=== PATIENT | female | born 1995 | race Caucasian/White ===

== ENCOUNTER → 2017-08-26 | Outpatient (CLI) | payer OTHER ==
[~2017-08-26] MED LIST: COLA100C5 PO; IBUP80TA PO; PERC5TAB12 PO; PERCOCET PO; PRENTAB20 PO; PROHANCE 279.3MG/ML 15ML VIAL (A9576) As Ordered ONE; TUMS500C PO
--- NOTE | 2017-08-26 12:30 | REP ---
MRI left foot without followed by with IV contrast: History: Evaluate for Russell's neuroma left foot. Second and third metatarsal space. Pain. No comparison imaging. Technique: Axial, coronal and sagittal T1 and T2 weighted scans were obtained with and without fat saturation. MRI findings: There is an ill-defined area of T2 hyperintense edema in the distal intermetatarsal web space between the third and fourth metatarsals consistent with a diagnosis of Russell's neuroma. The T2 hyperintense signal spans a 1 cm proximal to distal x 9 mm dorsal to plantar x 10 mm medial to lateral dimension. I do not see a clearly defined soft tissue mass. There is a small quantity of fluid adjacent to the flexor tendon at the head of the third metatarsal. No significant joint effusion is seen. Cortical and medullary bone signal intensity are normal here as well as throughout the remainder of the foot. No other soft tissue finding is seen. Post gadolinium enhanced images do not show any significant enhancement here. No other evidence of abnormal gadolinium enhancement is seen. The exam is otherwise unremarkable. Impression: Focal area of T2 hyperintense edema in the web space between the distal ends of the third and fourth metatarsals. No definable mass lesion is seen, however this may represent a small Russell's neuroma. No other significant finding. Signed by Rolando Ramires MD 08/26/2017 03:13 P
== END ==
LOC: M RAD 09:00
PROVIDERS: ATTEND Podiatrist Foot & Ankle Surgery
DX: G57.62 Lesion of plantar nerve, left lower limb (principal); M79.672 Pain in left foot; R60.0 Localized edema
CPT/HCPCS: 73720; A9576

== ENCOUNTER → 2019-03-14 | Outpatient (REF) | payer OTHER ==
[~2019-03-14] MED LIST changes: -PROHANCE 279.3MG/ML 15ML VIAL (A9576) As Ordered ONE
[2019-03-14 12:40] LABS: BASO % 0.4 % (0.0-1.0); EOS # 0.1 10^3/uL (0.0-0.50); EOS % 0.6 % (0.0-3.0); HEMATOCRIT 41.5 % (36.0-47.0); HEMOGLOBIN 14.2 g/dl (12.0-15.5); LYMPH % 21.1 % (24.0-44.0); MEAN CORPUSCULAR HGB CONC 34.2 g/dl (32.0-36.5); MEAN CORPUSCULAR VOLUME 90.6 fl (80.0-96.0); MONO # 0.4 10^3/uL (0.0-0.8); MONO % 4.1 % (0.0-5.0); NEUTROPHILS # 6.9 10^3/uL (1.8-7.7); NEUTROPHILS % 73.5 % (36.0-66.0); PLATELET COUNT, AUTOMATED 217 10^3/uL (150-450); RED BLOOD COUNT 4.58 10^6/uL (4.00-5.40); WHITE BLOOD COUNT 9.5 10^3/uL (4.0-10.0)
[2019-03-14 13:53] LABS: HEPATITIS C VIRUS ABY INDEX 0.1 INDEX (<0.8); HIV 1&2 SCREEN CENTAUR NEGATIVE (NEGATIVE); RUBELLA IgG QUALITATIVE IMMUNE (IMMUNE)
[2019-03-14 15:15] LABS: CHLAMYDIA DNA AMPLIFICATION NEGATIVE (NEGATIVE); GC DNA AMPLIFICATION NEGATIVE (NEGATIVE)
== END ==
LOC: M LABDRAW1 08:40
PROVIDERS: ATTEND Advanced Practice Midwife
DX: Z34.81 Encounter for supervision of other normal pregnancy, first trimester (principal); Z36.89 Encounter for other specified antenatal screening

== ENCOUNTER → 2019-03-15 | Outpatient (CLI) | payer OTHER | LOC: M SMT 15:35 | PROVIDERS: ATTEND Advanced Practice Midwife | DX: O36.19 Maternal care for other isoimmunization (principal); Z3A.00 Weeks of gestation of pregnancy not specified ==

== ENCOUNTER → 2019-05-28 | Outpatient (CLI) | payer OTHER ==
[~2019-05-28] MED LIST changes: +OXYC1TAB23 PO; +PRENTAB55 PO
--- NOTE | 2019-05-28 18:58 | REP ---
Obstetric ultrasound for anatomy: There is a single intrauterine gestation in a vertex presentation. There is movement and cardiac activity. heart rate is 155 beats per minute. The placenta is posterior. There is no placenta previa or abruptio. Placenta is grade zero. The amniotic fluid volume subjectively is normal. The cervix measures 3.6 cm length. By today's ultrasound of the gestational age is 19 weeks 0 days/PONCHO 10/22/2019. By LMP gestational age is 18 weeks 1 day/PONCHO 10/28/2019. weight is 262 grams/0 pounds, 9 ounces. This is the 78th percentile for 18 weeks 1 day. The following anatomic structures are identified and are unremarkable: Choroid plexus, cavum septum pellucidum, cerebellum, facial profile, upper lip, lungs, four-chamber heart, cardiac right and left ventricular outflow tracts, diaphragm, stomach, cord insertion, three-vessel cord, kidneys, bladder, spine and upper lower extremities. No anomalies are identified. Electronically Signed by Kade Zhao MD 05/28/2019 06:49 P
== END ==
LOC: M RAD 17:21
PROVIDERS: ATTEND Advanced Practice Midwife
DX: Z34.82 Encounter for supervision of other normal pregnancy, second trimester (principal); Z3A.00 Weeks of gestation of pregnancy not specified

== ENCOUNTER → 2019-08-08 | Outpatient (CLI) | payer OTHER ==
[~2019-08-08] MED LIST changes: -OXYC1TAB23 PO; -PRENTAB55 PO
[2019-08-08 14:14] LABS: HEMATOCRIT 37.3 % (36.0-47.0); HEMOGLOBIN 12.6 g/dl (12.0-15.5); MEAN CORPUSCULAR HEMOGLOBIN 32.6 pg (27.0-33.0); MEAN CORPUSCULAR HGB CONC 33.8 g/dl (32.0-36.5); MEAN CORPUSCULAR VOLUME 96.4 fl (80.0-96.0); PLATELET COUNT, AUTOMATED 187 10^3/uL (150-450); RED BLOOD COUNT 3.87 10^6/uL (4.00-5.40); WHITE BLOOD COUNT 8.8 10^3/uL (4.0-10.0)
== END ==
LOC: M SMT 09:46
PROVIDERS: ATTEND Advanced Practice Midwife
DX: Z34.82 Encounter for supervision of other normal pregnancy, second trimester (principal)

== ENCOUNTER → 2019-10-02 | Outpatient (REF) | payer OTHER | LOC: M LAB REF 17:03 | PROVIDERS: ATTEND Obstetrics & Gynecology | DX: Z36.85 Encounter for antenatal screening for Streptococcus B (principal) ==

== ENCOUNTER → 2019-10-10 | Outpatient (CLI) | payer OTHER ==
[~2019-10-10] MED LIST changes: +PRENTAB55 PO
== END ==
LOC: M PLALAB 15:12
PROVIDERS: ATTEND Advanced Practice Midwife
DX: Z34.93 Encounter for supervision of normal pregnancy, unspecified, third trimester (principal)

== ENCOUNTER 2019-10-20 05:45 | Inpatient (IN) | payer OTHER ==
[~2019-10-20] VITALS: Ht 167.6 cm; Wt 86.0 kg
[2019-10-20] VITALS (22 sets, daily range): BP systolic 98–154; BP diastolic 57–92
[2019-10-20] MEDS ORDERED: LACTATED RINGER'S 1000 ML IV STA (06:03)
[2019-10-20] MEDS ORDERED: ceFAZolin SOD 2 GM in IV 1 EA IV ONE (06:15)
[2019-10-20] MEDS ORDERED: BICITRA 30ML SOLN UDC PO ONE (06:15)
[2019-10-20] MEDS ORDERED: AZITHROMYCIN INJ 500 MG, VIAL MATE ADAPTER 1 EACH in D5W 250 ML IV ONE (06:15)
[2019-10-20 06:33] LABS: HEMATOCRIT 40.3 % (36.0-47.0); MEAN CORPUSCULAR HEMOGLOBIN 32.1 pg (27.0-33.0); MEAN CORPUSCULAR HGB CONC 34.7 g/dl (32.0-36.5); MEAN CORPUSCULAR VOLUME 92.4 fl (80.0-96.0); PLATELET COUNT, AUTOMATED 172 10^3/uL (150-450); RED BLOOD COUNT 4.36 10^6/uL (4.00-5.40); WHITE BLOOD COUNT 8.1 10^3/uL (4.0-10.0)
--- NOTE | 2019-10-20 06:42 | HPEPDOC ---
Obstetrical History & Physical General Date of Admission Oct 20, 2019 at 06:06 History of Present Illness Chief Complaint: Contractions, term, Other (bleeding) Information Provided By: Patient Age: 24 : 2 Term: 1 Pre-term: 0 Abortions: 0 Livin Care Care: Good Care Dating Final EDC: Oct 28, 2019 Final EDC by: LMP EGA at Admission: 38 (+6) Antepartum Course Height (inches): 66 Pre- weight (lbs.): 150 Admission Weight (lbs.): 184 Past Medical History Past Obstetrical History : Past Obstetrical History: Primgravida (2014) Type of Delivery: Ceserean section Sex of Infant: Male (634) Complications: Yes (chronic abruption, breech) Past Medical History Medical History childhood seizure Surgical History: section, Other (foot) Family History Significant Family History: Diabetes, Hypertension, Other (hep c) Social History Marital Status: Single * Smoker: non-smoker Alcohol: Denies Drugs: denies Abuse Violence Screening Have you been hit/kicked/slapp: No Have you been sexually assault: No Imunizations Tdap status: current Allergies Coded Allergies: No Known Allergies (Unverified , 10/09/19) Medications Scheduled Cmo978/Iron Fum/Folic/Docusate ( 19 Tablet) 1 Each Tablet, 1 TAB PO DAILY Physical Examination Physical Examination GENERAL: Alert and oriented times three. BREAST: . ABDOMEN: Gravid and non-tender to touch. FETUS: Is vertex (VTX) by sterile vaginal examination (SVE), fetus is vertex (VTX) by Gabriele. Spec exam shows moderate pooling of blood, brisk bleeding. Visible membranes approximately 2cm HEART RATE: Regular rate and rhythm. LUNGS: Clear to auscultation (CTA). EXTREMITIES: No edema. No clonus. Deep tendon reflexes (DTRs) + 2. Laboratory Data 24[facility] LABS Laboratory Tests 2 10/20/19 06:12: Serology Scanned Report Hepatitis B Testing Pertinent Laboratoy Data Blood Type: A+ RBC Antibody Screen: Positive (anti s) HIV: Negative Hepatitis B: Negative Hepatitis C: Negative Rapid Plasma Reagin: Nonreactive Rubella: Immune Chlamydia/Gonorrhea: Negative Group B Streptococcus: Negative Quad Screen Test: Declined Glucose Tolerance Test: 89 Anatomy Ultrasound Ultrasound Date: March 14, 1999 Placenta Location: Posterior Normal Anatomy: Yes Placenta Previa: No Estimated Weight (grams): 262 Other Ultrasounds 03/14/19 dating 7w6d Steroid Therapy Steroid Therapy: No Vaginal Examination Dilation: complete Effacement: 100% Station: -1 Cervical Consistency: Soft Presentation: Cephalic presentation Assessment Heart Rate (FHR): 135 Variability: Moderate Accelerations: Positive Tocometer Contractions: Yes Frequency: irregular Strength: palpated as strong Assessment/Plan Assessment Nuris is a 24-year-old (G)2 para (P)1-0-0-1 at 38+6 weeks by 7-week ultrasound. Presents to Labor and Delivery (L&D) with reports of UC and heavy bleeding for the past 1-2 hours. Unknown LOF. Moderate amount of bleeding. Plan Admit and orient. Wrapping Machine Helper and consent per Dr Rodarte Diet: NPO. Group B Streptococcus (GBS) negative. Labs and intravenous (IV) per unit protocol. Type and cross ordered. Lactated Ringers (LR): Bolus 1000 mL, then at 125 mL/hr. Anesthesia and surgeon notified. Preps made for repeat . Angie Morocho CNM Oct 20, 2019 06:42
[2019-10-20] MEDS ORDERED: OXYTOCIN 30 UNITS IN 0.9% NaCl 500ML IV BAG (J2590) As Ordered ONE ×2 (07:03→07:42)
[2019-10-20] MEDS ORDERED: LIDOCAINE 1% MDV 20ML VIAL As Ordered ONE (07:37)
[2019-10-20 07:41] LABS: CORD GAS HCO3 V 18.3 MEQ/L; CORD GAS O2 SAT V 77.2 %; CORD GAS PCO2 V 36.6 mmHg; CORD GAS PH V 7.317 UNITS; CORD GAS PO2 V 36.4 mmHg; CORD GAS SBC V 18.4 MEQ/L; CORD GAS TCO2 V 19.4 MEQ/L
[2019-10-20 07:42] LABS: CORD GAS ABE A -7.5; CORD GAS HCO3 A 20.6 MEQ/L; CORD GAS O2 SAT A 82.7 %; CORD GAS PCO2 A 51.3 mmHg; CORD GAS PH A 7.222 UNITS; CORD GAS PO2 A 45.2 mmHg; CORD GAS SBC A 18.2 MEQ/L; CORD GAS TCO2 A 22.2 MEQ/L
[2019-10-20] MEDS ORDERED: OXYTOCIN DRIP 30 UNITS in IV 1 EA IV SCH ×4 (08:28)
[2019-10-20] MEDS ORDERED: RHOGAM 300 MCG (1500 IU) INJ (J2790) IM SCH (08:30)
[2019-10-20] MEDS ORDERED: IBUPROFEN 600 MG TAB PO PRN (08:30)
[2019-10-20] MEDS ORDERED: MOM 30ML SUSPENSION UDC PO PRN (08:30)
[2019-10-20] MEDS ORDERED: ACETAMINOPHEN TAB 650MG DOSE (2X325MG) PO PRN (08:30)
[2019-10-20] MEDS ORDERED: ACETAMINOPHEN 500 MG TAB PO PRN (08:30)
[2019-10-20] MEDS ORDERED: ANUSOL HC CREAM 30GM TOP PRN (08:30)
[2019-10-20] MEDS ORDERED: DOCUSATE SODIUM 100 MG CAP PO PRN (08:30)
[2019-10-20] MEDS ORDERED: LIDOCAINE 1% MDV 20ML VIAL INFIL ONE (08:30)
[2019-10-20] MEDS ORDERED: DIBUCAINE 1% OINTMENT 30GM TOP PRN (08:30)
[2019-10-20] MEDS ORDERED: miSOPROStol 200 MCG TAB (S0191) PR ONE (08:30)
[2019-10-20] MEDS ORDERED: METHYLERGONOVINE MALEATE 0.2 MG/ML VIAL (J2210) IM PRN (08:30)
[2019-10-20] MEDS ORDERED: MEASLES,MUMPS,RUBELLA VACCINE INJ (MMR-II) (90707) SC SCH (08:30)
--- NOTE | 2019-10-20 08:47 | DNPDOC ---
[facility] Delivery Note Delivery Note DATE OF DELIVERY: 10/20/19 PREDELIVERY DIAGNOSIS: 38-6/7 weeks' gestation and labor. POST DELIVERY DIAGNOSIS: Delivered. PROCEDURE: Spontaneous vaginal delivery. Successful PROVIDER: Angie Morocho CNM, Dr Rodarte present ANESTHESIA: none. ESTIMATED BLOOD LOSS: 1000 mL FINDINGS: 9 pound 6 ounce, 4250 male , Score 9/9, no nuchal cord. DELIVERY SUMMARY: Patient is a 24-year-old 2 now para 2-0-0-2 who was admitted to labor and delivery for active labor and heavy bleeding. Reports onset 0430 with bloody SROM 0500. OR preparations were made upon arrival. Meanwhile, pt made rapid labor progress and demonstrated a strong urge to push. FD 0635. Viable male child delivered CHELE without difficulty @ 0711. Spontaneous respirations, transitioned on maternal abdomen. Cord gases obtained. Arterial 7.22 with BE -7.5 and venous 7.317 with BE -7.0. Cord doubly clamped and cut once pulsations ceased. Apgars 9/9. Placenta dennis, intact with 3v cord, small amount of clot noted along perimeter. Fundus slow to firm despite massage and IV pitocin bolus. Misoprostol 1000mcg TN and methergine 0.2mg IM given. Fundus firmed, EBL 1000ml. Large right sulcus and 2nd degree laceration noted. See Dr Rodarte note for repair. Parents are naming their son Ronak. Sponge, sharp and instrument count correct at close of procedure. Angie Morocho CNM Oct 20, 2019 08:42
[2019-10-20] MEDS: PRENATAL VITAMINS CHEWABLE TABLET PO SCH (09:30)
[2019-10-20] MEDS: IBUPROFEN 800 MG TAB PO PRN ×2 (09:30→18:25)
[2019-10-20] MEDS: METHYLERGONOVINE MALEATE 0.2 MG TAB PO SCH ×2 (12:05→18:20)
[2019-10-20 12:14] LABS: HEMATOCRIT 28.6 % (36.0-47.0); MEAN CORPUSCULAR HEMOGLOBIN 31.8 pg (27.0-33.0); MEAN CORPUSCULAR HGB CONC 33.6 g/dl (32.0-36.5); MEAN CORPUSCULAR VOLUME 94.7 fl (80.0-96.0); PLATELET COUNT, AUTOMATED 175 10^3/uL (150-450); RED BLOOD COUNT 3.02 10^6/uL (4.00-5.40); WHITE BLOOD COUNT 16.3 10^3/uL (4.0-10.0)
[2019-10-20 12:24] LABS: HEMOGLOBIN 9.6 g/dl (12.0-15.5)
[2019-10-20] MEDS ORDERED: SLF 3 ML SYR IV PRN (13:00)
[2019-10-20] MEDS ORDERED: MIDAZOLAM INJ 2 MG/2 ML VIAL (J2250) As Ordered ONE (13:24)
[2019-10-20] MEDS ORDERED: fentaNYL 100 MCG/2 ML INJECTION (J3010) As Ordered ONE (13:25)
[2019-10-20] MEDS ORDERED: METHYLERGONOVINE MALEATE 0.2 MG/ML VIAL (J2210) As Ordered ONE (13:31)
[2019-10-20] MEDS ORDERED: SILVER NITRATE APPLICATOR As Ordered ONE (13:31)
[2019-10-20] MEDS ORDERED: VASOPRESSIN INJ 20 UNITS/ML VIAL As Ordered ONE (13:31)
[2019-10-20] MEDS: SLF 3 ML SYR IV SCH ×2 (14:00→20:25)
[2019-10-20] MEDS ORDERED: ePHEDrine SULFATE 25 MG/5 ML(5MG/ML) SYRINGE As Ordered ONE (15:11)
[2019-10-20] MEDS ORDERED: PHENYLephrine HCL 500 MCG/5 ML (100MCG/ML) SYRINGE (J2370) As Ordered ONE (15:11)
[2019-10-20] MEDS ORDERED: fentaNYL 100 MCG/2 ML INJECTION (J3010) IV PRN (15:30)
[2019-10-20] MEDS ORDERED: NS 500 ML IV SCH (15:30)
[2019-10-20] MEDS ORDERED: METOCLOPRAMIDE INJ 10MG/2ML VIAL (J2765) IV PRN (15:30)
[2019-10-20] MEDS: ePHEDrine SULFATE 25 MG/5 ML(5MG/ML) SYRINGE IV SCH ×3 (15:30→19:35)
[2019-10-20] MEDS ORDERED: MEPERIDINE INJ 25 MG/ML VIAL (J2175) IV PRN (15:30)
[2019-10-20] MEDS ORDERED: LR 1,000 ML IV SCH (15:30)
[2019-10-20] MEDS ORDERED: PERCOCET 5MG/325MG TAB PO PRN (15:30)
[2019-10-20] MEDS ORDERED: ONDANSETRON 4MG/2ML VIAL (J2405) IV PRN (15:30)
[2019-10-20] MEDS: PERCOCET 5MG/325MG TAB PO PRN (20:24)
[2019-10-21] MEDS: METHYLERGONOVINE MALEATE 0.2 MG TAB PO SCH ×2 (00:30→05:37)
[2019-10-21 02:00] VITALS: BP 106/64
[2019-10-21] MEDS: SLF 3 ML SYR IV SCH ×3 (05:38→20:27)
[2019-10-21] MEDS: IBUPROFEN 800 MG TAB PO PRN ×2 (05:38→14:10)
[2019-10-21 06:00] VITALS: BP 102/61
[2019-10-21 08:07] LABS: HEMATOCRIT 24.3 % (36.0-47.0); HEMOGLOBIN 8.5 g/dl (12.0-15.5); MEAN CORPUSCULAR VOLUME 91.4 fl (80.0-96.0); PLATELET COUNT, AUTOMATED 107 10^3/uL (150-450); RED BLOOD COUNT 2.66 10^6/uL (4.00-5.40); WHITE BLOOD COUNT 9.9 10^3/uL (4.0-10.0)
[2019-10-21] MEDS: PRENATAL VITAMINS CHEWABLE TABLET PO SCH (08:43)
[2019-10-21] MEDS: PERCOCET 5MG/325MG TAB PO PRN ×2 (08:44→20:27)
[2019-10-21 18:00] VITALS: BP 113/51
[2019-10-21] MEDS ORDERED: OXYC1TAB23 PO (21:20)
[2019-10-22] MEDS: SLF 3 ML SYR IV SCH (06:00)
[2019-10-22] MEDS: IBUPROFEN 800 MG TAB PO PRN (06:04)
[2019-10-22] MEDS ORDERED: IBUP80TA PO (06:11)
[2019-10-22 06:20] VITALS: BP 104/58
[2019-10-22] MEDS: PRENATAL VITAMINS CHEWABLE TABLET PO SCH (09:43)
--- NOTE | 2019-10-22 10:03 | RO ---
DATE OF PROCEDURE: 10/20/2019 PREPROCEDURE DIAGNOSIS: Complicated obstetrical laceration status post vaginal delivery. POSTPROCEDURE DIAGNOSIS: Complicated obstetrical laceration status post vaginal delivery. PROCEDURE: Repair of obstetrical laceration. SURGEON: Dr. Jose Angel Rodarte. COLLEGE PHYSICS INSTRUCTOR: XOCHILT Magaña. ANESTHESIA: Local. ESTIMATED BLOOD LOSS: 500 mL FINDINGS: High deep sulcus tear of the vagina on the right. Intact external anal sphincter and rectal mucosa. DESCRIPTION OF PROCEDURE: The patient had successful vaginal after of a 9-usiha-6-ounce male infant with no delivery anesthesia. The intention was to perform a section, however, the patient progressed rapidly in labor and there was not adequate time to go to the operating room for surgical delivery. After discussing delivery of the placenta. I was requested to come help with repair of difficult obstetrical laceration. Findings as noted above. The platinum retractor was placed anterior in the vagina to help expose the sulcus tear. #2-0 chromic suture was placed at the apex on the lower sulcus tear and a running locked suture was placed in the right sulcus. The deep layer was closed with several interrupted sutures of #2-0 chromic. A second degree repair was repaired in the usual fashion as well. Patient received a total of 40 mL of 1% lidocaine to help with pain during the repair. Rectal exam was performed at the end of the repair and revealed an intact anal sphincter as well as rectal mucosa. Sponge and needle counts were correct. The patient total estimated blood loss for the delivery and repair was certainly 1000 mL.
--- NOTE | 2019-10-22 11:09 | RO ---
DATE OF PROCEDURE: 10/20/2019 PREPROCEDURE DIAGNOSIS: Vaginal wall hematoma. POSTPROCEDURE DIAGNOSIS: Vaginal wall hematoma. PROCEDURE: Evacuation of vaginal hematoma, repair of obstetrical laceration. SURGEON: Dr. Jose Angel Rodarte INTERNAL AUDITOR: ANESTHESIA: Spinal. ESTIMATED BLOOD LOSS: 300 mL. URINE OUTPUT: 100 mL. FINDINGS: Moderately large hematoma of the perineal body and right sulcus. The hematoma did not extend into the ischiorectal fossa. DESCRIPTION OF PROCEDURE: The patient was taken to the operating room where spinal anesthesia was induced. Maier catheter was already in place. She was prepped and draped in a sterile fashion in the dorsal lithotomy position. A Breisky retractor was used to retract the vaginal wall. Sutures from her previous vaginal repair were excised using May scissors and hematoma involving the perineal body and right sulcus was evacuated manually. The right sulcus was identified. Bleeding areas were sutured with 2-0 chromic. The sulcus was then repaired with 2-0 chromic in a running fashion. The deep layer was repaired with multiple sutures of 2-0 chromic. The remaining second degree perineal laceration was repaired with 2-0 chromic in the usual fashion. Sponge, instrument and needle counts were correct. The patient went to the recovery room in stable condition.
== END 2019-10-22 14:30 | disposition home or self-care (01) | DRG 560 ==
LOC: M LDO 05:45 → M LDI 06:06 → M OBS 10:33
PROVIDERS: ADMIT Advanced Practice Midwife; ATTEND Specialist
PROC: 0KQM0ZZ Repair Perineum Muscle, Open Approach (ICD-10-PCS; 2019-10-20)
PROC: 0UCG7ZZ Extirpation of Matter from Vagina, Via Natural or Artificial Opening (ICD-10-PCS; 2019-10-20)
PROC: 30233N1 Transfusion of Nonautologous Red Blood Cells into Peripheral Vein, Percutaneous Approach (ICD-10-PCS; 2019-10-20)
PROC: 10E0XZZ Delivery of Products of Conception, External Approach (ICD-10-PCS; principal; 2019-10-20 13:30)
DX: O46.93 Antepartum hemorrhage, unspecified, third trimester (principal); O71.7 Obstetric hematoma of pelvis; O43.893 Other placental disorders, third trimester; Z3A.38 38 weeks gestation of pregnancy; O62.3 Precipitate labor; O70.1 Second degree perineal laceration during delivery; O34.211 Maternal care for low transverse scar from previous cesarean delivery; Z37.0 Single live birth

== ENCOUNTER → 2020-05-27 | Outpatient (CLI) | payer OTHER ==
[~2020-05-27] MED LIST changes: +EVEN500C2 PO; +IRON1TAB2 PO; +MIRE1IUD IU; +OXYC1TAB23 PO; +PEPC1TAB5 PO
[2020-05-27 17:32] LABS: BASO % 0.6 % (0.0-1.0); EOS # 0.1 10^3/uL (0.0-0.5); EOS % 1.2 % (0.0-3.0); HEMATOCRIT 40.9 % (36.0-47.0); HEMOGLOBIN 13.8 g/dl (12.0-15.5); LYMPH # 2.3 10^3/uL (1.5-5.0); LYMPH % 34.4 % (24.0-44.0); MEAN CORPUSCULAR HEMOGLOBIN 31.7 pg (27.0-33.0); MEAN CORPUSCULAR HGB CONC 33.7 g/dl (32.0-36.5); MONO # 0.3 10^3/uL (0.0-0.8); MONO % 4.3 % (0.0-5.0); NEUTROPHILS % 59.4 % (36.0-66.0); PLATELET COUNT, AUTOMATED 183 10^3/uL (150-450); RED BLOOD COUNT 4.35 10^6/uL (4.00-5.40); WHITE BLOOD COUNT 6.8 10^3/uL (4.0-10.0)
[2020-05-27 18:01] LABS: ALT/SGPT 19 U/L (12-78); BILIRUBIN,TOTAL 0.8 MG/DL (0.2-1.0); BLOOD UREA NITROGEN 14 MG/DL (7-18); CALCIUM LEVEL 9.4 MG/DL (8.5-10.1); CARBON DIOXIDE LEVEL 31 MEQ/L (21-32); CHLORIDE LEVEL 106 MEQ/L (98-107); CREATININE FOR GFR 0.68 MG/DL (0.55-1.30); GLOMERULAR FILTRATION RATE > 60.0 (>60); GLUCOSE, FASTING 80 MG/DL (70-100); POTASSIUM SERUM 3.7 MEQ/L (3.5-5.1); SODIUM LEVEL 141 MEQ/L (136-145); THYROID STIMULATING HORMONE 0.269 uIU/ML (0.358-3.740); TOTAL PROTEIN 7.4 GM/DL (6.4-8.2)
[2020-05-27 18:02] LABS: INR 1.1; PROTHROMBIN TIME 13.9 SECONDS (11.8-14.0)
[2020-05-27 18:03] LABS: PARTIAL THROMBOPLASTIN TIME 29.7 SECONDS (25.0-38.4)
== END ==
LOC: M LAB 16:30
PROVIDERS: ATTEND Physician Assistant
DX: R63.4 Abnormal weight loss (principal); R23.3 Spontaneous ecchymoses

== ENCOUNTER → 2020-06-30 | Outpatient (CLI) | payer OTHER ==
[~2020-06-30] MED LIST changes: +DICY1CAP8 PO; +OMEP40CA97 PO; +ZOFR4TAB16 PO
[2020-08-25 22:30] LABS: THYROID PEROXIDASE ANTIBODY 37.4 U/ML (<60.0); THYROID STIMULATING HORMONE 0.235 uIU/ML (0.358-3.740); TOTAL T3 97.5 NG/DL (60.0-181.0)
== END ==
LOC: M LAB 11:39
PROVIDERS: ATTEND Nurse Practitioner Family
DX: R94.6 Abnormal results of thyroid function studies (principal)

== ENCOUNTER → 2020-09-22 | Outpatient (CLI) | payer OTHER ==
--- NOTE | 2020-09-22 12:20 | REP ---
INDICATION: NAUSEA WITH VOMITTING. COMPARISON: None. TECHNIQUE: Standard right upper quadrant ultrasound technique utilized including color imaging at the renal hilus. FINDINGS: Right upper quadrant shows the liver homogeneous in echotexture without focal hepatic mass, intrahepatic biliary dilatation or perihepatic ascites. The gallbladder shows normal wall thickness of 1.8 mm. It is nontender. There is no stone, sludge or pericholecystic fluid. Common duct 2.4 mm without a stone. Visualized pancreas is unremarkable. Right kidney is 11.2 x 6.3 x 4.6 cm. No definite stone, mass, cyst or Ida nephric fluid. IMPRESSION: Normal right upper quadrant ultrasound. <Electronically signed by Kike Lux > 09/22/20 [id number]
== END ==
LOC: M RAD 08:43
PROVIDERS: ATTEND Internal Medicine Gastroenterology
DX: R11.2 Nausea with vomiting, unspecified (principal)

== ENCOUNTER → 2020-10-07 | Outpatient (CLI) | payer OTHER ==
--- NOTE | 2020-10-07 14:07 | REP ---
INDICATION: SACROCOCCYGEAL DISORDER, NOT ELSEWHERE CLASSIFIED COMPARISON: None. TECHNIQUE: AP and lateral views of the sacrum and coccyx (four views total). FINDINGS: Frontal radiographs demonstrate moderate symmetric bilateral periarticular sclerosis without articular effusion or periarticular lytic changes and no obvious marginal osteophyte formation. Lateral view demonstrates chronic posterior subluxation at the sacrococcygeal level which may reflect old injury. IMPRESSION: Bilateral early sacroiliitis cannot be excluded and should be correlated with physical examination. Possible old injury with subtle subluxation at the sacrococcygeal level. <Electronically signed by Nabil Eid > 10/07/20 [id number]
== END ==
LOC: M WUC 13:33
PROVIDERS: ATTEND Physician Assistant
DX: M53.3 Sacrococcygeal disorders, not elsewhere classified (principal)

== ENCOUNTER → 2020-10-24 | Outpatient (CLI) | payer OTHER ==
--- NOTE | 2020-10-24 11:16 | REP ---
INDICATION: OTH SPECIFIED DX OF GALLBLADDER. COMPARISON: None. TECHNIQUE/RADIOTRACER AND DOSE: 6.6 mCi of Technetium-99m mebrofenin was injected and sequential anterior images are acquired. Sixty-five minutes after the mebrofenin injection, the patient consumed 8 ounces Ensure and an additional 16 minutes of imaging was acquired. Regions of interest are plotted around the gallbladder. FINDINGS: The initial hepatocellular parenchymal uptake phase is normal and homogeneous. Intra- and extra-hepatic bile ducts are labeled by the 15 image. The gallbladder is first labeled on the 15-minute image. There is normal washout from the liver parenchyma into the gallbladder and small intestine on subsequent images. The gallbladder ejection fraction is 76%. Values greater than 35% are considered normal with this technique. IMPRESSION: Normal hepatobiliary scan and normal gallbladder ejection fraction. <Electronically signed by Jose L Ramires > 10/24/20 1116
== END ==
LOC: M RAD 07:34
PROVIDERS: ATTEND Internal Medicine Gastroenterology
DX: K82.8 Other specified diseases of gallbladder (principal)
CPT/HCPCS: 78227; A9537

== ENCOUNTER → 2020-10-31 | Outpatient (CLI) | payer OTHER | LOC: M WUC 17:24 | PROVIDERS: ATTEND Internal Medicine Gastroenterology | DX: R11.2 Nausea with vomiting, unspecified (principal) ==

== ENCOUNTER → 2020-10-31 | Outpatient (CLI) | payer OTHER ==
[2020-10-31 20:28] LABS: FREE T4 0.75 NG/DL (0.76-1.46); THYROID STIMULATING HORMONE 0.258 uIU/ML (0.358-3.740)
== END ==
LOC: M WUC 17:26
PROVIDERS: ATTEND Nurse Practitioner Family
DX: R94.6 Abnormal results of thyroid function studies (principal)

== ENCOUNTER → 2020-11-04 | Outpatient (REF) | payer OTHER ==
[~2020-11-04] MED LIST changes: +HYDR-643 PO
== END ==
LOC: M LAB REF 11:17
PROVIDERS: ATTEND Internal Medicine Gastroenterology
DX: R11.2 Nausea with vomiting, unspecified (principal)

== ENCOUNTER → 2020-11-13 | Outpatient (CLI) | payer OTHER | LOC: M LABSMTC 10:05 | PROVIDERS: ATTEND Anesthesiology | DX: Z01.812 Encounter for preprocedural laboratory examination (principal); Z20.828 Contact with and (suspected) exposure to other viral communicable diseases ==

== ENCOUNTER 2020-11-18 10:44 | Day surgery (SDC) | payer OTHER ==
[~2020-11-18] VITALS: Ht 167.6 cm; Wt 64.9 kg
[~2020-11-18 10:44] MED LIST changes: +NS 1,000 ML IV ONE
[2020-11-18] MEDS ORDERED: LIDOCAINE 2% 100MG/5ML SDV (FOR ANES.) As Ordered ONE ×2 (11:57→12:37)
[2020-11-18] MEDS ORDERED: propofoL 200 MG/20 ML VIAL As Ordered ONE (11:57)
[2020-11-18] MEDS ORDERED: propofoL 500 MG/50 ML VIAL As Ordered ONE (12:37)
[2020-11-18] MEDS ORDERED: fentaNYL 100 MCG/2 ML INJECTION (J3010) As Ordered ONE (12:37)
--- NOTE | 2020-11-18 12:45 | ROOR ---
Patient Name: Nuris Shi Procedure Date: 11/18/2020 12:31 PM Date of : 1995 Age: 25 Room: [facility] Gender: Female Note Status: Finalized Procedure: Upper GI endoscopy Indications: Nausea with vomiting, Weight loss Providers: Modesto MUKHERJEE MD Referring MD: BAILEY Dexter Requesting Provider: Medicines: Monitored Anesthesia Care Complications: No immediate complications. Procedure: Pre-Anesthesia Assessment: - The heart rate, respiratory rate, oxygen saturations, blood pressure, adequacy of pulmonary ventilation, and response to care were monitored throughout the procedure. The Endoscope was introduced through the mouth, and advanced to the second part of duodenum. The upper GI endoscopy was accomplished without difficulty. The patient tolerated the procedure well. Findings: The esophagus was normal. The stomach was normal. The examined duodenum was normal. Impression: - Normal esophagus. - Normal stomach. - Normal examined duodenum. - No specimens collected. Recommendation: - Follow an antireflux regimen. - Observe patient's clinical course. - Continue present medications. Procedure Code(s): --- Professional --- 38869, Esophagogastroduodenoscopy, flexible, transoral; diagnostic, including collection of specimen(s) by brushing or washing, when performed (separate procedure) Diagnosis Code(s): --- Professional --- R63.4, Abnormal weight loss R11.2, Nausea with vomiting, unspecified CPT copyright 2019 [employer]. All rights reserved. The codes documented in this report are preliminary and upon medical record coder review may be revised to meet current compliance requirements. Modesto Mukherjee MD Modesto MUKHERJEE MD 11/18/2020 12:44:41 PM Electronically signed by Modesto MUKHERJEE MD Number of Addenda: 0 Note Initiated On: 11/18/2020 12:31 PM Estimated Blood Loss: Estimated blood loss: none.
--- NOTE | 2020-11-18 12:57 | ROOR ---
Patient Name: Nuris Shi Procedure Date: 11/18/2020 12:34 PM Date of : 1995 Age: 25 Room: [facility] Gender: Female Note Status: Finalized Procedure: Colonoscopy Indications: Weight loss Providers: Modesto MUKHERJEE MD Referring MD: BAILEY Dexter Requesting Provider: Medicines: Monitored Anesthesia Care Complications: No immediate complications. Procedure: Pre-Anesthesia Assessment: - The heart rate, respiratory rate, oxygen saturations, blood pressure, adequacy of pulmonary ventilation, and response to care were monitored throughout the procedure. The Colonoscope was introduced through the anus and advanced to 10 cm into the ileum. The colonoscopy was performed without difficulty. The patient tolerated the procedure well. The quality of the bowel preparation was good. Findings: The perianal and digital rectal examinations were normal. A diminutive polyp was found in the hepatic flexure. The polyp was sessile. The polyp was removed with a cold snare. Resection and retrieval were complete. A single small-mouthed diverticulum was found in the sigmoid colon. Small Internal Hemorrhoids. The exam was otherwise without abnormality on direct and retroflexion views. Impression: - One diminutive polyp at the hepatic flexure, removed with a cold snare. Resected and retrieved. - Minimal diverticulosis in the sigmoid colon. - Small Internal Hemorrhoids. - The examination was otherwise normal on direct and retroflexion views. Recommendation: - Telephone endoscopist for pathology results in 2 weeks. - If the pathology report reveals adenomatous tissue, then repeat the colonoscopy for surveillance in 5 years. Procedure Code(s): --- Professional --- 80852, Colonoscopy, flexible; with removal of tumor(s), polyp(s), or other lesion(s) by snare technique Diagnosis Code(s): --- Professional --- K57.30, Diverticulosis of large intestine without perforation or abscess without bleeding R63.4, Abnormal weight loss K63.5, Polyp of colon CPT copyright 2019 [employer]. All rights reserved. The codes documented in this report are preliminary and upon upsetter helper review may be revised to meet current compliance requirements. Modesto Mukherjee MD Modesto MUKHERJEE MD 11/18/2020 12:57:15 PM Electronically signed by Modesto MUKHERJEE MD Number of Addenda: 0 Note Initiated On: 11/18/2020 12:34 PM Estimated Blood Loss: Estimated blood loss: none.
[2020-11-18 13:25] VITALS: BP 129/71
== END 2020-11-18 13:32 | disposition home or self-care (01) ==
LOC: M OPP 10:44
PROVIDERS: ATTEND Internal Medicine Gastroenterology
DX: R63.4 Abnormal weight loss (principal); R11.2 Nausea with vomiting, unspecified; K63.5 Polyp of colon; K57.30 Diverticulosis of large intestine without perforation or abscess without bleeding; K64.8 Other hemorrhoids
CPT/HCPCS: 43235; 45385; 88305; J3010

== ENCOUNTER → 2020-12-15 | Outpatient (CLI) | payer OTHER ==
[~2020-12-15] MED LIST changes: -NS 1,000 ML IV ONE
[2020-12-15 14:01] LABS: CHOLESTEROL RISK RATIO 2.75 (<5); FOLLICLE STIMULATING HORMONE 6.8 mIU/mL; FREE T4 0.88 NG/DL (0.76-1.46); PROLACTIN 2.9 NG/ML; THYROID STIMULATING HORMONE 0.223 uIU/ML (0.358-3.740)
[2020-12-15 14:34] LABS: LUTEINIZING HORMONE 21.4 mIU/mL
== END ==
LOC: M WUC 09:00
PROVIDERS: ATTEND Nurse Practitioner Family
DX: R94.6 Abnormal results of thyroid function studies (principal); E28.2 Polycystic ovarian syndrome

== ENCOUNTER → 2021-02-26 | Outpatient (CLI) | payer OTHER ==
--- NOTE | 2021-02-26 15:33 | REP ---
INDICATION: SACROCOCCYGEAL DISORDERS. COMPARISON: None. TECHNIQUE: Sagittal T1, T2, STIR, axial T1 and T2 weighted images of the lumbar spine are obtained. FINDINGS: There is mild multilevel degenerative disc disease with loss of disc height and disc desiccation. Vertebral heights are overall preserved. No malalignments. On the sagittal T2 weighted images, no limiting canal stenosis. Conus ends normally at L1 level. On the review of axial images, no significant canal or foraminal narrowing at any lumbar level. No evidence of disc herniation. On the STIR images, no significant STIR signal abnormality to suggest soft tissue or ligamentous injury. IMPRESSION: Normal examination. No significant canal stenosis, or disc herniation. No significant foraminal stenosis. <Electronically signed by Vikc Feliz > 02/26/21 [id number]
== END ==
LOC: M PLARAD 13:39
PROVIDERS: ATTEND Physician Assistant Surgical
DX: M53.3 Sacrococcygeal disorders, not elsewhere classified (principal)

== ENCOUNTER → 2021-04-08 | Outpatient (REF) | payer OTHER ==
[2021-04-08 16:11] LABS: BLOOD UREA NITROGEN 15 MG/DL (7-18); CARBON DIOXIDE LEVEL 30 MEQ/L (21-32); CHLORIDE LEVEL 106 MEQ/L (98-107); CREATININE FOR GFR 0.64 MG/DL (0.55-1.30); FREE T4 0.74 NG/DL (0.76-1.46); GLOMERULAR FILTRATION RATE > 60.0 (>60); GLUCOSE, FASTING 85 MG/DL (70-100); POTASSIUM SERUM 4.4 MEQ/L (3.5-5.1); SODIUM LEVEL 139 MEQ/L (136-145); THYROID STIMULATING HORMONE 0.317 uIU/ML (0.358-3.740)
== END ==
LOC: M PLALAB 14:59
PROVIDERS: ATTEND Nurse Practitioner Family
DX: R94.6 Abnormal results of thyroid function studies (principal); E28.2 Polycystic ovarian syndrome

== ENCOUNTER → 2021-04-29 | Outpatient (REF) | payer OTHER | LOC: M SFHCWAGY 13:07 | PROVIDERS: ATTEND Obstetrics & Gynecology | DX: Z12.4 Encounter for screening for malignant neoplasm of cervix (principal) ==

== ENCOUNTER → 2021-10-12 | Outpatient (CLI) | payer OTHER ==
[~2021-10-12] MED LIST changes: +OMEP40CA4 PO; -OMEP40CA97 PO
[2021-10-12 17:59] LABS: FREE T4 0.77 NG/DL (0.76-1.46); THYROID STIMULATING HORMONE 0.554 uIU/ML (0.358-3.740)
== END ==
LOC: M LAB 15:54
PROVIDERS: ATTEND Internal Medicine Endocrinology, Diabetes & Metabolism
DX: R94.6 Abnormal results of thyroid function studies (principal)

== ENCOUNTER → 2022-01-12 | Outpatient (CLI) | payer OTHER ==
[2022-01-12 18:13] LABS: FREE T4 0.85 NG/DL (0.76-1.46); THYROID STIMULATING HORMONE 0.935 uIU/ML (0.358-3.740)
[2022-01-13 16:54] LABS: BLOOD UREA NITROGEN 16 MG/DL (7-18); CALCIUM LEVEL 9.4 MG/DL (8.5-10.1); CARBON DIOXIDE LEVEL 29 MEQ/L (21-32); CHLORIDE LEVEL 103 MEQ/L (98-107); CREATININE FOR GFR 0.71 MG/DL (0.55-1.30); GLOMERULAR FILTRATION RATE > 60.0 (>60); GLUCOSE, FASTING 80 MG/DL (70-100); SODIUM LEVEL 138 MEQ/L (136-145)
[2022-01-13 17:06] LABS: TESTOSTERONE 36 NG/DL (14-76)
== END ==
LOC: M LAB 16:52
PROVIDERS: ATTEND Internal Medicine Endocrinology, Diabetes & Metabolism
DX: R94.6 Abnormal results of thyroid function studies (principal)

== ENCOUNTER → 2022-03-30 | Outpatient (CLI) | payer OTHER ==
[2022-03-30 18:37] LABS: FREE T4 0.77 NG/DL (0.76-1.46); THYROID STIMULATING HORMONE 0.369 uIU/ML (0.358-3.740)
== END ==
LOC: M LAB 17:26
PROVIDERS: ATTEND Nurse Practitioner Family
DX: R94.6 Abnormal results of thyroid function studies (principal)

== ENCOUNTER → 2022-08-03 | Outpatient (CLI) | payer OTHER ==
[2022-08-03 18:57] LABS: FREE T4 0.8 NG/DL (0.76-1.46); THYROID STIMULATING HORMONE 0.477 uIU/ML (0.358-3.740)
== END ==
LOC: M LAB 17:00
PROVIDERS: ATTEND Nurse Practitioner Family
DX: R94.6 Abnormal results of thyroid function studies (principal)

== ENCOUNTER → 2023-01-11 | Outpatient (CLI) | payer OTHER ==
[2023-01-11 18:20] LABS: FREE T4 1.08 NG/DL (0.89-1.76); THYROID STIMULATING HORMONE 0.458 uIU/ML (0.55-4.78)
[2023-01-11 18:21] LABS: TESTOSTERONE 37 NG/DL (14-76)
[2023-01-11 18:53] LABS: ALBUMIN 4.1 G/DL (3.2-5.2); ALKALINE PHOSPHATASE 38 U/L (46-116); ALT/SGPT 15 U/L (7.0-40); AST/SGOT 18 U/L (<34); BILIRUBIN,TOTAL 0.5 MG/DL (0.3-1.2); BLOOD UREA NITROGEN 10 MG/DL (9-23); CALCIUM LEVEL 8.9 MG/DL (8.5-10.1); CARBON DIOXIDE LEVEL 29 MMOL/L (20-31); CHLORIDE LEVEL 102 MMOL/L (98-107); CHOLESTEROL LEVEL 194 MG/DL (<200); CHOLESTEROL RISK RATIO 3.93 (<5); CREATININE FOR GFR 0.52 MG/DL (0.55-1.30); GLOMERULAR FILTRATION RATE > 60.0 (>60); GLUCOSE, FASTING 85 MG/DL (60-100); HDL CHOLESTEROL 49.3 MG/DL (>40); LDL CHOLESTEROL 128.1 MG/DL (<100); NON-HDL-C 145 MG/DL; POTASSIUM SERUM 3.8 MMOL/L (3.5-5.1); SODIUM LEVEL 137 MMOL/L (136-145); TRIGLYCERIDES LEVEL 83 MG/DL (<150)
[2023-01-11 20:28] LABS: HEMOGLOBIN A1c 5.1 % (4.0-6.0)
== END ==
LOC: M LAB 16:51
PROVIDERS: ATTEND Internal Medicine Endocrinology, Diabetes & Metabolism
DX: R94.6 Abnormal results of thyroid function studies (principal); E28.2 Polycystic ovarian syndrome

== ENCOUNTER 2023-02-06 17:26 | Observation (INO) | payer OTHER ==
[~2023-02-06] VITALS: Ht 167.6 cm; Wt 67.0 kg
[2023-02-06 18:18] LABS: BASO # 0.1 10^3/uL (0.0-0.2); BASO % 0.4 % (0.0-1.0); EOS % 0.1 % (0.0-3.0); HEMATOCRIT 44.4 % (36.0-47.0); HEMOGLOBIN 15.7 g/dl (12.0-15.5); LYMPH # 2.7 10^3/uL (1.5-5.0); LYMPH % 10.9 % (24.0-44.0); MEAN CORPUSCULAR HEMOGLOBIN 32.7 pg (27.0-33.0); MEAN CORPUSCULAR HGB CONC 35.4 g/dl (32.0-36.5); MEAN CORPUSCULAR VOLUME 92.5 fl (80.0-96.0); MONO # 1.4 10^3/uL (0.0-0.8); MONO % 5.8 % (2.0-8.0); NEUTROPHILS % 82.3 % (36.0-66.0); PLATELET COUNT, AUTOMATED 271 10^3/uL (150-450); WHITE BLOOD COUNT 24.3 10^3/uL (4.0-10.0)
[2023-02-06] MEDS ORDERED: BENZONATATE 100MG CAPSULE PO ONE (18:40)
[2023-02-06] MEDS ORDERED: MORPHINE 4 MG/ML 1ML VIAL IV ONE (18:40)
[2023-02-06] MEDS ORDERED: NS 1,000 ML IV ONE (18:40)
[2023-02-06] MEDS ORDERED: ONDANSETRON 4MG 2ML VIAL IV ONE (18:40)
[2023-02-06 18:45] LABS: LIPASE 25 U/L (12-53)
[2023-02-06 18:47] LABS: ALBUMIN 4.3 G/DL (3.2-5.2); ALKALINE PHOSPHATASE 83 U/L (46-116); ALT/SGPT 34 U/L (7.0-40); AST/SGOT 30 U/L (<34); BILIRUBIN,DIRECT 0.3 MG/DL (<0.4); BILIRUBIN,TOTAL 0.8 MG/DL (0.3-1.2)
[2023-02-06 18:50] LABS: RSV AMPLIFICATION NEGATIVE (NEGATIVE)
[2023-02-06] MEDS ORDERED: cefTRIAXone SOD 2 GM in D5W MINI-BAG PLUS 50 ML IV ONE (18:50)
[2023-02-06] MEDS: NS 1,010 ML in IV 1 EA IV ONE ×2 (18:50→20:02)
[2023-02-06 18:57] LABS: CK-MB VALUE MASS < 1.0 NG/ML (<3.6)
[2023-02-06 18:58] LABS: CPK CREATINE PHOSPHOKINASE 96 U/L (34-145); MB/CK RELATIVE INDEX 1.04 (< OR =4)
[2023-02-06 19:30] LABS: INR 1.04; PROTHROMBIN TIME 13.8 SECONDS (12.5-14.5)
[2023-02-06 19:31] LABS: PARTIAL THROMBOPLASTIN TIME 30.6 SECONDS (24.8-34.2)
[2023-02-06 19:37] LABS: CK-MB VALUE MASS < 1.0 NG/ML (<3.6)
[2023-02-06 19:38] LABS: CPK CREATINE PHOSPHOKINASE 92 U/L (34-145); MB/CK RELATIVE INDEX 1.08 (< OR =4)
[2023-02-06] MEDS ORDERED: ISOVUE-370 76% 100ML VIAL As Ordered ONE (19:51)
[2023-02-06] MEDS ORDERED: SPIR100T3 PO (23:00)
[2023-02-06] MEDS ORDERED: LEXA1TAB PO (23:00)
[2023-02-06] MEDS ORDERED: TRAZ-252 PO (23:00)
[2023-02-06] MEDS ORDERED: HYDR-3363 PO (23:00)
[2023-02-06] MEDS ORDERED: HOME MED LIST COMPLETE! XX SCH (23:05)
[2023-02-06] MEDS ORDERED: NS 1,000 ML IV SCH (23:40)
[2023-02-06] MEDS ORDERED: KETOROLAC 30 MG/ML 1ML VIAL IV PRN (23:40)
[2023-02-06] MEDS ORDERED: NS 500 ML IV ONE (23:40)
[2023-02-07 03:05] VITALS: BP 116/73
[2023-02-07] MEDS: AMPICILLIN SOD/SULBACTAM SOD 3 GM in D5W MINI-BAG PLUS 100 ML IV SCH ×4 (03:29→22:19)
[2023-02-07 06:00] VITALS: BP 86/46
[2023-02-07 06:30] LABS: BLOOD UREA NITROGEN 8 MG/DL (9-23); CALCIUM LEVEL 7.9 MG/DL (8.5-10.1); CARBON DIOXIDE LEVEL 26 MMOL/L (20-31); CHLORIDE LEVEL 103 MMOL/L (98-107); CREATININE FOR GFR 0.46 MG/DL (0.55-1.30); GLOMERULAR FILTRATION RATE > 60.0 (>60); GLUCOSE, FASTING 87 MG/DL (60-100); POTASSIUM SERUM 3.3 MMOL/L (3.5-5.1); SODIUM LEVEL 138 MMOL/L (136-145)
[2023-02-07 08:00] VITALS: BP 100/67
[2023-02-07] MEDS ORDERED: POTASSIUM CHLORIDE 10MEQ SR TABLET PO ONE (08:00)
[2023-02-07 09:00] VITALS: BP 99/64
[2023-02-07] MEDS ORDERED: SPIRONOLACTONE 50 MG TAB PO SCH ×2 (09:00→21:00)
[2023-02-07] MEDS ORDERED: hydrOXYzine 50 MG TAB PO PRN (09:45)
[2023-02-07] MEDS: ESCITALOPRAM OXALATE 10 MG TAB (LEXAPRO) PO SCH (10:44)
[2023-02-07] MEDS ORDERED: KETOROLAC 30 MG/ML 1ML VIAL IV PRN (11:55)
[2023-02-07 12:39] LABS: HEMOGLOBIN 12.1 g/dl (12.0-15.5); MEAN CORPUSCULAR HEMOGLOBIN 33.2 pg (27.0-33.0); MEAN CORPUSCULAR HGB CONC 34.6 g/dl (32.0-36.5); MEAN CORPUSCULAR VOLUME 95.9 fl (80.0-96.0); PLATELET COUNT, AUTOMATED 187 10^3/uL (150-450); RED BLOOD COUNT 3.65 10^6/uL (4.00-5.40); WHITE BLOOD COUNT 11.7 10^3/uL (4.0-10.0)
[2023-02-07] MEDS: ACETAMINOPHEN TAB 650MG DOSE (2X325MG) PO PRN ×2 (13:11→22:19)
[2023-02-07] MEDS: ENOXAPARIN 40MG/0.4ML SYRINGE (J1650 PER 10MG) SC SCH (13:12)
[2023-02-07 14:00] VITALS: BP 112/62
[2023-02-07] MEDS ORDERED: traZODone 50 MG TAB PO SCH (21:00)
[2023-02-07 22:14] VITALS: BP 104/65
[2023-02-08] MEDS: AMPICILLIN SOD/SULBACTAM SOD 3 GM in D5W MINI-BAG PLUS 100 ML IV SCH ×2 (04:19→09:03)
[2023-02-08 05:42] VITALS: BP 104/64
[2023-02-08 06:28] LABS: HEMATOCRIT 34.7 % (36.0-47.0); HEMOGLOBIN 11.7 g/dl (12.0-15.5); MEAN CORPUSCULAR HEMOGLOBIN 32.6 pg (27.0-33.0); MEAN CORPUSCULAR HGB CONC 33.7 g/dl (32.0-36.5); MEAN CORPUSCULAR VOLUME 96.7 fl (80.0-96.0); PLATELET COUNT, AUTOMATED 202 10^3/uL (150-450); RED BLOOD COUNT 3.59 10^6/uL (4.00-5.40); WHITE BLOOD COUNT 9.8 10^3/uL (4.0-10.0)
[2023-02-08 06:58] LABS: BLOOD UREA NITROGEN < 5 MG/DL (9-23); CALCIUM LEVEL 8.3 MG/DL (8.5-10.1); CARBON DIOXIDE LEVEL 27 MMOL/L (20-31); CHLORIDE LEVEL 105 MMOL/L (98-107); CREATININE FOR GFR 0.49 MG/DL (0.55-1.30); GLOMERULAR FILTRATION RATE > 60.0 (>60); GLUCOSE, FASTING 99 MG/DL (60-100); MAGNESIUM LEVEL 1.6 MG/DL (1.8-2.4); PHOSPHORUS LEVEL 2.7 MG/DL (2.5-4.9); POTASSIUM SERUM 3.2 MMOL/L (3.5-5.1); SODIUM LEVEL 141 MMOL/L (136-145)
[2023-02-08] MEDS ORDERED: POTASSIUM CHLORIDE 10MEQ SR TABLET PO ONE ×2 (08:45→10:35)
[2023-02-08] MEDS ORDERED: POTASSIUM CHLORIDE 10% LIQ 20MEQ/15ML UDC PO ONE (08:45)
[2023-02-08] MEDS: ESCITALOPRAM OXALATE 10 MG TAB (LEXAPRO) PO SCH (09:04)
[2023-02-08] MEDS: ENOXAPARIN 40MG/0.4ML SYRINGE (J1650 PER 10MG) SC SCH (09:05)
[2023-02-08] MEDS: MAG SULF 1GM/100ML (MAG RUN) 1 GM in IV 1 EA IV SCH ×3 (09:49→12:07)
[2023-02-08] MEDS: ACETAMINOPHEN TAB 650MG DOSE (2X325MG) PO PRN (09:52)
[2023-02-08] MEDS ORDERED: AMOX875T2 PO (10:41)
[2023-02-08] MEDS ORDERED: POTA-151 PO (10:41)
== END 2023-02-08 13:30 | disposition home or self-care (01) ==
LOC: M ED 17:26 → M ED INP 17:27 → ENRESERV 02-07 00:29 → M MSPAV 02-07 02:42
PROVIDERS: ADMIT Internal Medicine; ATTEND Internal Medicine
DX: J32.9 Chronic sinusitis, unspecified (principal); B34.8 Other viral infections of unspecified site; R74.02 Elevation of levels of lactic acid dehydrogenase [LDH]; D69.1 Qualitative platelet defects; E87.6 Hypokalemia; E83.42 Hypomagnesemia; I95.9 Hypotension, unspecified; R94.31 Abnormal electrocardiogram [ECG] [EKG]; Z20.828 Contact with and (suspected) exposure to other viral communicable diseases; M25.50 Pain in unspecified joint; E28.2 Polycystic ovarian syndrome; F32.A Depression, unspecified; G47.00 Insomnia, unspecified; J30.1 Allergic rhinitis due to pollen; F17.290 Nicotine dependence, other tobacco product, uncomplicated; Z79.899 Other long term (current) drug therapy
CPT/HCPCS: 36415; 70450; 70496; 70498; 70551; 71046; 80047; 80048; 80076; 81001; 82550; 82553; 83605; 83690; 83735; 84100; 84702; 85025; 85027; 85610; 85730; 87040; 87086; 87486; 87581; 87631; 87633; 87798; 93005; 93041; 94760; 96361; 96365; 96366; 96367; 96368; 96372; 96375; 96376; 99285; J0295; J0696; J1650; J1885; J2405; J3475; Q9967

== ENCOUNTER → 2023-02-18 | Outpatient (REF) | payer OTHER ==
[~2023-02-18] MED LIST changes: +AMOX875T2 PO; +HYDR-3363 PO; +LEXA1TAB PO; +POTA-151 PO; +SPIR100T3 PO; +TRAZ-252 PO
[2023-02-18 17:45] LABS: BASO # 0.1 10^3/uL (0.0-0.2); BASO % 0.8 % (0.0-1.0); EOS # 0.1 10^3/uL (0.0-0.5); EOS % 1.5 % (0.0-3.0); HEMATOCRIT 38.8 % (36.0-47.0); HEMOGLOBIN 12.9 g/dl (12.0-15.5); LYMPH # 3.2 10^3/uL (1.5-5.0); LYMPH % 34.8 % (24.0-44.0); MEAN CORPUSCULAR HEMOGLOBIN 32.7 pg (27.0-33.0); MEAN CORPUSCULAR HGB CONC 33.2 g/dl (32.0-36.5); MEAN CORPUSCULAR VOLUME 98.2 fl (80.0-96.0); MONO # 0.4 10^3/uL (0.0-0.8); MONO % 3.8 % (2.0-8.0); NEUTROPHILS # 5.4 10^3/uL (1.5-8.5); NEUTROPHILS % 58.9 % (36.0-66.0); PLATELET COUNT, AUTOMATED 322 10^3/uL (150-450); RED BLOOD COUNT 3.95 10^6/uL (4.00-5.40); WHITE BLOOD COUNT 9.2 10^3/uL (4.0-10.0)
[2023-02-18 18:10] LABS: LIPASE 31 U/L (12-53)
[2023-02-18 18:12] LABS: ALBUMIN 3.7 G/DL (3.2-5.2); ALKALINE PHOSPHATASE 46 U/L (46-116); ALT/SGPT 26 U/L (7.0-40); AST/SGOT 19 U/L (<34); BILIRUBIN,TOTAL 0.2 MG/DL (0.3-1.2); BLOOD UREA NITROGEN 11 MG/DL (9-23); CARBON DIOXIDE LEVEL 30 MMOL/L (20-31); CHLORIDE LEVEL 105 MMOL/L (98-107); CHOLESTEROL LEVEL 195 MG/DL (<200); CHOLESTEROL RISK RATIO 3.72 (<5); CREATININE FOR GFR 0.65 MG/DL (0.55-1.30); GLOMERULAR FILTRATION RATE > 60.0 (>60); GLUCOSE, FASTING 81 MG/DL (60-100); HDL CHOLESTEROL 52.3 MG/DL (>40); LDL CHOLESTEROL 116.5 MG/DL (<100); NON-HDL-C 142.7 MG/DL; POTASSIUM SERUM 3.7 MMOL/L (3.5-5.1); SODIUM LEVEL 141 MMOL/L (136-145); TOTAL PROTEIN 6.8 G/DL (5.7-8.2); TRIGLYCERIDES LEVEL 131 MG/DL (<150)
[2023-02-18 18:14] LABS: THYROID STIMULATING HORMONE 0.446 uIU/ML (0.55-4.78); TOTAL 25(OH) VITAMIN D 25.7 NG/ML (20.0-100.0)
[2023-02-18 18:39] LABS: HIV 1&2 SCREEN ATELLICA NEGATIVE (NEGATIVE)
[2023-02-18 18:52] LABS: HEMOGLOBIN A1c 5.1 % (4.0-6.0)
[2023-02-21 21:09] LABS: HEPATITIS C QUANTITATION HCV Not Detected IU/mL (.)
== END ==
LOC: M LAB REF 17:10
PROVIDERS: ATTEND Nurse Practitioner Family
DX: Z11.9 Encounter for screening for infectious and parasitic diseases, unspecified (principal); R14.0 Abdominal distension (gaseous); D72.829 Elevated white blood cell count, unspecified; Z68.24 Body mass index [BMI] 24.0-24.9, adult; E55.9 Vitamin D deficiency, unspecified; R53.83 Other fatigue

== ENCOUNTER → 2023-04-15 | Outpatient (REF) | payer OTHER ==
[2023-04-15 17:43] LABS: BLOOD UREA NITROGEN 9 MG/DL (9-23); CALCIUM LEVEL 8.7 MG/DL (8.5-10.1); CARBON DIOXIDE LEVEL 26 MMOL/L (20-31); CHLORIDE LEVEL 105 MMOL/L (98-107); FREE T4 0.83 NG/DL (0.89-1.76); GLOMERULAR FILTRATION RATE > 60.0 (>60); GLUCOSE, FASTING 84 MG/DL (60-100); POTASSIUM SERUM 3.3 MMOL/L (3.5-5.1); SODIUM LEVEL 141 MMOL/L (136-145); THYROGLOBULIN ANTIBODY < 15.0 U/ML (<60.0); THYROID PEROXIDASE ANTIBODY < 28.0 U/ML (<60.0); THYROID STIMULATING HORMONE 0.322 uIU/ML (0.55-4.78)
[2023-04-15 17:46] LABS: FOLATE 15.1 NG/ML (>5.4); VITAMIN B12 LEVEL 280 PG/ML (211-911)
== END ==
LOC: M LAB REF 16:49
PROVIDERS: ATTEND Nurse Practitioner Family
DX: R94.6 Abnormal results of thyroid function studies (principal); E83.42 Hypomagnesemia; E87.6 Hypokalemia; R20.2 Paresthesia of skin

== ENCOUNTER → 2023-04-21 | Outpatient (CLI) | payer OTHER | LOC: M WHC 15:21 | PROVIDERS: ATTEND Nurse Practitioner Family | DX: R89.1 Abnormal level of hormones in specimens from other organs, systems and tissues (principal) ==

== ENCOUNTER → 2023-05-02 | Outpatient (CLI) | payer OTHER | LOC: M WUC 14:35 | PROVIDERS: ATTEND Nurse Practitioner Family | DX: M25.562 Pain in left knee (principal) ==

== ENCOUNTER → 2023-07-05 | Outpatient (REF) | payer OTHER | LOC: M SFHCWAGY 18:31 | PROVIDERS: ATTEND Obstetrics & Gynecology | DX: Z12.4 Encounter for screening for malignant neoplasm of cervix (principal) ==

== ENCOUNTER → 2023-12-07 | Outpatient (CLI) | payer OTHER | LOC: M SLEEP HO 10:29 | PROVIDERS: ATTEND Nurse Practitioner Family | DX: G47.00 Insomnia, unspecified (principal); R06.83 Snoring; R40.0 Somnolence; G47.30 Sleep apnea, unspecified ==

== ENCOUNTER → 2024-04-05 | Outpatient (CLI) | payer OTHER | LOC: M SLEEP 20:00 | PROVIDERS: ATTEND Nurse Practitioner Family | DX: R40.0 Somnolence (principal) ==

== ENCOUNTER → 2025-03-14 | Outpatient (REF) | payer OTHER | LOC: M SFHCDERM 17:53 | PROVIDERS: ATTEND Physician Assistant | DX: D22.5 Melanocytic nevi of trunk (principal) ==

== ENCOUNTER 2025-11-01 23:24 | Emergency (ER) | payer OTHER ==
[~2025-11-01] VITALS: Ht 167.6 cm; Wt 65.8 kg
[2025-11-01 23:27] VITALS: TEMP 99.1
[2025-11-02] MEDS ORDERED: TRANEXAMIC ACID INJection 1,000 MG in IV FLUID PLACE HOLDER 1 EA IV ONE (01:05)
[2025-11-02] MEDS: TRANEXAMIC ACID INJection 1,000 MG, VIAL MATE ADAPTER 1 EACH in NS 100 ML IV ONE (01:35)
[2025-11-02 01:49] LABS: BASO # 0.1 10^3/uL (0.0-0.2); BASO % 0.8 % (0.0-1.0); EOS # 0.1 10^3/uL (0.0-0.5); EOS % 1.2 % (0.0-3.0); LYMPH # 2.7 10^3/uL (1.5-5.0); LYMPH % 36.8 % (24.0-44.0); MONO # 0.2 10^3/uL (0.0-0.8); MONO % 2.8 % (2.0-8.0); NEUTROPHILS # 4.2 10^3/uL (1.5-8.5); NEUTROPHILS % 58.1 % (36.0-66.0); PLATELET COUNT, AUTOMATED 226 10^3/uL (150-450)
[2025-11-02 02:20] LABS: INR 0.95
[2025-11-02] MEDS: LIDOCAINE W/EPINEPHrine 1% 20 ML VIAL SC ONE (02:25)
[2025-11-02 03:30] VITALS: BP 104/64; O2SAT 98
== END 2025-11-02 03:46 | disposition home or self-care (01) ==
LOC: M ED 23:24
DX: S01.511A Laceration without foreign body of lip, initial encounter (principal); S02.5XXA Fracture of tooth (traumatic), initial encounter for closed fracture; F10.120 Alcohol abuse with intoxication, uncomplicated; Y92.019 Unspecified place in single-family (private) house as the place of occurrence of the external cause; Y93.9 Activity, unspecified; Y99.9 Unspecified external cause status; W01.198A Fall on same level from slipping, tripping and stumbling with subsequent striking against other object, initial encounter; F41.9 Anxiety disorder, unspecified; F32.A Depression, unspecified; Z79.2 Long term (current) use of antibiotics; Z79.899 Other long term (current) drug therapy